=== PATIENT | male | born 1995 ===

== ENCOUNTER 2016-11-22 12:13 | Inpatient (IN) | payer MEDICAID ==
[2016-11-22] MEDS ORDERED: Lidocaine 1% Inj (20ml) IJ ONE (12:46)
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
--- NOTE | 2016-11-22 12:57 | RAD ---
PROCEDURE: Left Hand Radiographs. HISTORY: trauma COMPARISON: None available. FINDINGS: BONES: Acute displaced fracture of the proximal 5th phalanx. JOINTS: No dislocation. SOFT TISSUES: Soft tissue swelling. No evidence of radiopaque foreign body. OTHER FINDINGS: None. IMPRESSION: Soft tissue swelling. Acute displaced fracture of the proximal 5th phalanx.
--- NOTE | 2016-11-22 14:05 | RAD ---
PROCEDURE: Left small finger radiographs. HISTORY: trauma COMPARISON: Left hand radiographs performed 11/22/16 TECHNIQUE: AP radiograph of the left hand, as well as spot oblique and lateral images of left small finger were obtained. FINDINGS: LEFT SMALL FINGER: Images obtained through a splint which obscures osseous detail. Proximal left 5th phalanx fracture deformity appears in improved alignment. Remainder of the left hand (as seen on the AP view) is grossly unremarkable. JOINTS: No dislocation. SOFT TISSUES: Soft tissue swelling. OTHER FINDINGS: None. IMPRESSION: Images obtained through a splint which obscures osseous detail. Proximal left 5th phalanx fracture deformity appears in improved alignment.
[2016-11-22 15:06] LABS: URINE BILIRUBIN NEGATIVE (NEGATIVE); URINE BLOOD SMALL (NEGATIVE); URINE COLOR YELLOW (YELLOW); URINE GLUCOSE (UA) NEGATIVE (Normal); URINE KETONE NEGATIVE (NEGATIVE); URINE PROTEIN NEGATIVE (NEGATIVE)
[2016-11-22 15:07] LABS: RBC URINE 1 /hpf (0-3); URINE LEUKOCYTE ESTERASE NEGATIVE Leu/uL (Negative); URINE UROBILINOGEN 0.2-1.0 mg/dL (0.2-1.0); WBC URINE < 1 /hpf (0-5)
[2016-11-22 15:32] LABS: BASO % 1.3 % (0.0-2.0); EOS # 0.2 K/uL (0.0-0.7); HEMATOCRIT 46.6 % (35.0-51.0); LYMPH # 0.8 K/uL (1.0-4.3); LYMPH % 22.6 % (20.0-40.0); MEAN CELL VOLUME 95.6 fl (80.0-94.0); MEAN CORPUSCULAR HEMOGLOBIN 31.9 pg (27.0-31.0); MEAN CORPUSCULAR HGB CONC 33.4 g/dL (33.0-37.0); MEAN PLATELET VOLUME 8.5 fl (7.2-11.7); MONO # 0.6 K/uL (0.0-0.8); MONO % 16.8 % (0.0-10.0); NEUT # 1.9 K/uL (1.8-7.0); NEUT % 54.3 % (50.0-75.0); NRBC % 0.3 % (0.0-0.0); RED CELL DISTRIBUTION WIDTH 13.2 % (11.5-14.5); WHITE BLOOD COUNT 3.5 K/uL (4.8-10.8)
[2016-11-22 15:42] LABS: ALB/GLOB RATIO 1.8 (1.0-2.1); ALCOHOL SERUM < 10 mg/dl (0-10); ALKALINE PHOSPHATASE 79 U/L (38-126); ALT/SGPT 20 U/L (21-72); AST/SGOT 26 U/L (17-59); BILIRUBIN,TOTAL 0.3 mg/dl (0.2-1.3); BLOOD UREA NITROGEN 11 mg/dl (9-20); CALCIUM 9.8 mg/dL (8.4-10.2); CARBON DIOXIDE 25 mmol/L (22-30); CHLORIDE 102 mmol/L (98-107); GFR AFRICAN-AMERICAN > 60; GLUCOSE,RANDOM 88 mg/dL (75-110); POTASSIUM 3.8 MMOL/L (3.6-5.0); SODIUM 141 mmol/l (132-148); TOTAL PROTEIN 7.8 G/DL (6.3-8.2)
[2016-11-22] MEDS ORDERED: Oxycodone/Acetaminophen 5/325 mg Tab ONE (16:07)
[2016-11-22] MEDS ORDERED: Oxycodone/Acetaminophen 5/325 mg Tab PO STA (16:12)
[2016-11-22 17:12] VITALS: O2SAT 99
[2016-11-22] MEDS ORDERED: Alum-Mag Hydrox-Simethicone Susp (30 mL) PO PRN (17:58)
[2016-11-22] MEDS ORDERED: Magnesium Hydroxide Susp 30 ml UD PO PRN (17:58)
[2016-11-22] MEDS ORDERED: DiphenhydrAMINE 50 mg/ml Inj IM PRN (18:28)
[2016-11-22] MEDS ORDERED: DiphenhydrAMINE 50 mg/ml Inj IM SCH (22:00)
[2016-11-23 07:45] LABS: T4 8.84 ug/dl (5.5-11.0)
[2016-11-23 07:59] LABS: THYROID STIMULATING HORMONE 2.29 mIU/ML (0.46-4.68)
--- NOTE | 2016-11-23 12:45 | PCM.PSYCH ---
Initial Psychiatric Evaluation - Initial Psychiatric Evaluation Type of Admission: Voluntary Legal Status: Capacity Chief Complaint (in patient's own words): they told me i had to come or i might have to go someplace else for mad long, so i came Patient's Reaction to Hospitalization: cooperative/pleasant History of Present Illness and Precipitating Events: pt has no prior psych history. 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 pt states he asked mother about possibly going to a graduate program and states his mother became very upset. states they had a loud, verbal argument. felt she had overreacted and pt made some draumatic gestures- put tie over his door, grabbed a bottle of pills- and then threw the pills down. denies making any attempt or having any desire to harm himself. denies feeling depressed. denies trouble with sleep. denies feeling hopeless or helpless. reports healthy relationship with his girlfriend and doing well at school. he admits to smoking mj with friends to relax. he denies any previous suicide attempts. he reports he would be open to therapy together with his mother. Current Medications: Active Medications Generic Name Dose Route Start Last Admin Trade Name Freq PRN Reason Stop Dose Admin Acetaminophen 650 mg 11/22/16 17:58 Tylenol 325mg Tab PO Q4 PRN Pain, Mild (1-3) Al Hydrox/Mg Hydrox/Simethicone 30 ml 11/22/16 17:58 Maalox Plus 30 Ml PO Q4 PRN Dyspepsia Diphenhydramine HCl 50 mg 11/22/16 17:58 Benadryl PO Q6 PRN Extrapyramidal Symptoms Diphenhydramine HCl 50 mg 11/22/16 18:28 Benadryl IM Q6 PRN EPS/ Dystonic reaction Diphenhydramine HCl 50 mg 11/22/16 18:31 11/23/16 00:15 Benadryl PO 50 mg HS PRN Administration Sleep Haloperidol 5 mg 11/22/16 17:58 Haldol PO Q4 PRN Agitation Haloperidol Lactate 5 mg 11/22/16 18:22 Haldol IM Q6 PRN Agitation Ibuprofen 600 mg 11/22/16 20:45 11/22/16 21:07 Motrin Tab PO 600 mg Q6 PRN Administration Pain, moderate (4-7) Lorazepam 2 mg 11/22/16 17:58 Ativan PO Q4 PRN Anxiety/Agitation Lorazepam 2 mg 11/22/16 21:10 Ativan IM Q4 PRN anxiety/agitation Magnesium Hydroxide 30 ml 11/22/16 17:58 Milk Of Magnesia PO HS PRN Constipation Past Psychiatric History - Past Psychiatric History Previous Treatment History: None History of Abuse: denies History of ETOH/Drug Use: smokes cigarettes when he "feels like it" not daily. smokes mj when with friends. denies use of alcohol. denies other use of illicit substances History of Family Illness: denies any fh of mental illness Pertinent Medical Hx (Current Medical&Sleep Prob, Allergies): Allergies Allergy/AdvReac Type Severity Reaction Status Date / Time No Known Allergies Allergy Verified 11/22/16 12:18 No Known Home Med 11/22/16 pt fracture left hand prior to the admission Review of Systems - Psychiatric Psychiatric: As Per [facility] Mental Status Examination - Personal Presentation Personal Presentation: Looks stated age - Affect Affect: Broad - Motor Activity Motor Activity: Calm - Reliability in Providing Information Reliability in Providing Information: Good - Speech Speech: Organized - Mood Mood: Neutral - Formal Thought Process Formal Thought Process: No Impairment - Obsessions/Compulsions Obsessions: No Compulsions: No - Cognitive Functions Orientation: Person, Place, Situation, Time Sensorium: Alert Attention/Concentration: Attentive Abstract Thinking: [place] Estimate of Intelligence: Average Judgement: Intact, as evidence by: Insight regarding need for hospitalization Memory: Recent intact, as evidence by: Ability to recall events of the day, Remote intact, as evidenced by: Abilit to recall sig. life events - Risk Risk: Suicidal (denies any thoughts/plan or intent to harm self) - Strength & Assets Inventory Strength & Assets Inventory: Intelligence - Limitations Limitations: Other (family conflicts) DSM 5 DX - DSM 5 DSM 5 Diagnosis: adjustment disorder, mixed anxiety depression - Recommended/Plan of Treatment Treatment Recommendations and Plan of Treatment: admit to 3[facility] for safety and observation gather collateral information provide supportive therapy no medications hospitalist consult- t/c ortho consult vs outpt follow up disposition planning- discharge tomorrow after contacting collaterals Projected ELOS: 2 days Prognosis: fair - Smoking Cessation Smoking Cessation Initiated: No Reason for not providing: declines
--- NOTE | 2016-11-23 19:38 | CP.PCM.CON ---
History of Present Illness - History of Present Illness History of Present Illness: 21 yo male admitted to psyche unit because of suicidal ideation. Review of Systems - Review of Systems All systems: reviewed and no additional remarkable complaints except (aside from those mentioned above, 12 point system review were negative by me) Past Patient History - Past Social History Smoking Status: Light Smoker < 10 Cigarettes Daily Chewing Tobacco Use: No Cigar Use: No Alcohol: None Drugs: Cannabis - CARDIAC Hx Cardiac Disorders: No Hx Hypertension: No - PULMONARY Hx Respiratory Disorders: No Hx Tuberculosis: No - NEUROLOGICAL HX Cerebrovascular Accident: No Hx Seizures: No - HEENT Hx HEENT Problems: No - RENAL Hx Chronic Kidney Disease: No Hx Kidney Stones: No - ENDOCRINE/METABOLIC Hx Endocrine Disorders: No - HEMATOLOGICAL/ONCOLOGICAL Hx Blood Disorders: No Hx Cancer: No Hx Human Immunodeficiency Virus (HIV): No - INTEGUMENTARY Hx Dermatological Problems: No - MUSCULOSKELETAL/RHEUMATOLOGICAL Hx Musculoskeletal Disorders: No - GASTROINTESTINAL Hx Gastrointestinal Disorders: No - GENITOURINARY/GYNECOLOGICAL Hx Genitourinary Disorders: No Hx Sexually Transmitted Disorders: No - PSYCHIATRIC Hx Substance Use: Yes (smokes THC on W/E) - SURGICAL HISTORY Hx Arteriovenous Shunt: No - ANESTHESIA Hx Anesthesia: No Meds Allergies/Adverse Reactions: Allergies Allergy/AdvReac Type Severity Reaction Status Date / Time No Known Allergies Allergy Verified 11/22/16 12:18 - Medications Medications: Current Medications Acetaminophen (Tylenol 325mg Tab) 650 mg PO Q4 PRN PRN Reason: Pain, Mild (1-3) Al Hydrox/Mg Hydrox/Simethicone (Maalox Plus 30 Ml) 30 ml PO Q4 PRN PRN Reason: Dyspepsia Diphenhydramine HCl (Benadryl) 50 mg PO Q6 PRN PRN Reason: Extrapyramidal Symptoms Diphenhydramine HCl (Benadryl) 50 mg IM Q6 PRN PRN Reason: EPS/ Dystonic reaction Diphenhydramine HCl (Benadryl) 50 mg PO HS PRN PRN Reason: Sleep Last Admin: 11/23/16 00:15 Dose: 50 mg Haloperidol (Haldol) 5 mg PO Q4 PRN PRN Reason: Agitation Haloperidol Lactate (Haldol) 5 mg IM Q6 PRN PRN Reason: Agitation Ibuprofen (Motrin Tab) 600 mg PO Q6 PRN PRN Reason: Pain, moderate (4-7) Last Admin: 11/22/16 21:07 Dose: 600 mg Lorazepam (Ativan) 2 mg PO Q4 PRN PRN Reason: Anxiety/Agitation Lorazepam (Ativan) 2 mg IM Q4 PRN PRN Reason: anxiety/agitation Magnesium Hydroxide (Milk Of Magnesia) 30 ml PO HS PRN PRN Reason: Constipation Physical Exam - Constitutional Appears: No Acute Distress - Head Exam Head Exam: ATRAUMATIC - Eye Exam Eye Exam: absent: Scleral icterus - ENT Exam ENT Exam: Mucous Membranes Moist - Neck Exam Neck exam: Negative for: Meningismus - Respiratory Exam Respiratory Exam: absent: Rhonchi, Wheezes, Respiratory Distress - Cardiovascular Exam Cardiovascular Exam: REGULAR RHYTHM, +S1, +S2 - GI/Abdominal Exam GI & Abdominal Exam: Soft. absent: Tenderness - Rectal Exam Rectal Exam: Deferred - Extremities Exam Extremities exam: Negative for: pedal edema - Back Exam Back exam: NORMAL INSPECTION - Neurological Exam Neurological exam: Alert, Oriented x3 - Psychiatric Exam Psychiatric exam: Normal Affect - Skin Skin Exam: Dry, Intact Results - Vital Signs Recent Vital Signs: Last Vital Signs Temp 97.9 F 11/23/16 10:00 Pulse 100 H 11/23/16 10:00 Resp 20 11/23/16 10:00 BP 119/75 11/23/16 10:00 Pulse Ox 99 11/22/16 17:10 - Labs Result Diagrams: 11/22/16 12:55 11/22/16 12:55 Labs: Laboratory Results - last 24 hr 11/23/16 11/23/16 11/23/16 06:00 06:00 06:00 Hemoglobin A1c 5.3 Triglycerides 57 Cholesterol 151 LDL Cholesterol Direct 77 HDL Cholesterol 51 Thyroxine (T4) 8.84 TSH 3rd Generation 2.29 RPR Nonreactive Assessment & Plan (1) Depression Status: Acute Comment: psyche is managing (2) Finger fracture Status: Acute Comment: displaced fracture of the proximal phalanx of the left 5th finger. maintain immobilization. follow up with ortho
--- NOTE | 2016-11-24 08:31 | PCM.PYCHDC ---
Mental Status Examination - Mental Status Examination Orientation: Person, Place, Situation, Time Memory: Intact Mood: Neutral Affect: Broad Speech: Appropriate Attention: WNL Concentration: WNL Association: WNL Fund of Knowledge: WNL Formal Thought Process: No Impairment Description of patient's judgement and insight: fair Psychotic Thoughts and Behaviors: denies a/v hallucinations Suicidal Ideation: No Current Homicidal Ideation?: No Plan: denies suicidal or homicidal thoughts Discharge Summary - Discharge Note Reason for Hospitalization: pt made suicidal gestures in context of argument with mother Psychiatric History (includes Medical, Family, Personal Hx): no previous history of psychiatric illness Laboratory Data: Abnormal Lab Results 11/23/16 11/23/16 11/23/16 06:00 06:00 06:00 Hemoglobin A1c 5.3 TSH 3rd Generation 2.29 RPR Nonreactive Consultations:: List each consultation separately and include: 1. Reason for request. 2. Findings. 3. Follow-up Consultations: seen by the hospitalist Summary of Hospital Course include:: 1. Description of specific treatment plan utilized for patients during their course of treatmen. 2. Summarize the time- course for resolution of acute symptoms and/or regressed behaviors. 3. Describe issues identified and worked on during hospitalization. 4. Describe medication utilized. 5. Describe medical problems identified and treated. 6. Reassessment of suicide risk Summary of Hospital Course: pt has no prior psych history. 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 pt states he asked mother about possibly going to a graduate program and states his mother became very upset. states they had a loud, verbal argument. felt she had overreacted and pt made some draumatic gestures- put tie over his door, grabbed a bottle of pills- and then threw the pills down. denies making any attempt or having any desire to harm himself. denies feeling depressed. denies trouble with sleep. denies feeling hopeless or helpless. reports healthy relationship with his girlfriend and doing well at school. he admits to smoking mj with friends to relax. he denies any previous suicide attempts. he reports he would be open to therapy together with his mother. hospital course pt was admitted to [facility] and oriented to the unit. pt placed on routine safety protocols. pt was seen by the hospitalist regarding his hand injury. he stated he will follow up with his mother's orthopedic doctor. he was seen by the treatment team. he was denying any suicidal thoughts and was insistent that the pt was misunderstood and that he was having an emotional argument with his mother. he was agreeable to referral to outpatient therapy. he was attending groups and was socializing with peers. pt was denying suicidal or homicidal thoughts. - Final Diagnosis (DSM 5) Condition upon Discharge: STABLE DSM 5: adjustment disorder, unspecified Disposition: HOME/ ROUTINE Follow-up Treatment Plan: follow up with outpatient treatment as prescribed do not use alcohol, tobacco or other illicit substances call 911 if any suicidal or homicidal thoughts - Smoking Cessation Smoking Cessation Medication prescribed: No Reason for not providing: declines - Antipsychotic Medications Pt discharged on 2 or more routine antipsychotic medications: No
[2016-11-24 10:43] VITALS: BP 131/75; PULSE 80; RESP 18; TEMP 97.3
== END 2016-11-24 13:26 | disposition home or self-care (01) | DRG 427 ==
LOC: H.ER 12:13 → H.ERHOLD 15:48 → H.PSYCH 17:31
PROVIDERS: ADMIT Psychiatry & Neurology Psychiatry; ATTEND Psychiatry & Neurology Psychiatry
PROC: GZHZZZZ Group Psychotherapy (ICD-10-PCS; principal; 2016-11-22)
PROC: GZ58ZZZ Individual Psychotherapy, Cognitive-Behavioral (ICD-10-PCS; 2016-11-22)
DX: F43.23 Adjustment disorder with mixed anxiety and depressed mood (principal); F12.10 Cannabis abuse, uncomplicated; S62.618A Displaced fracture of proximal phalanx of other finger, initial encounter for closed fracture; F17.210 Nicotine dependence, cigarettes, uncomplicated; W03.XXXA Other fall on same level due to collision with another person, initial encounter; Y92.009 Unspecified place in unspecified non-institutional (private) residence as the place of occurrence of the external cause

== ENCOUNTER 2016-11-30 20:49 | Emergency (ER) | payer MEDICAID ==
[2016-11-30 21:55] VITALS: BP 134/88; PULSE 88; RESP 16; TEMP 98; O2SAT 100
--- NOTE | 2016-11-30 23:09 | ED PDOC ---
Upper Extremity Pain/Injury Time Seen by Provider: 11/30/16 22:45 Chief Complaint (Nursing): Upper Extremity Problem/Injury Chief Complaint (Provider): Hand Pain History Per: Patient Additional History Per: Patient Additional Complaint(s): Patient diagnosed with broken left 5th digit last week and states he is unable to follow up with ortho or hand specialist. Past Medical History Reviewed: Nursing Documentation, Vital Signs Vital Signs: Last Vital Signs Temp 98.0 F 11/30/16 21:53 Pulse 88 11/30/16 21:53 Resp 16 11/30/16 21:53 BP 134/88 11/30/16 21:53 Pulse Ox 100 11/30/16 21:53 - Medical History PMH: Depression Denies: Diabetes, Hepatitis, HIV, HTN, Kidney Stones, Chronic Kidney Disease , Seizures, Sexually Transmitted Disease - Surgical History Surgical History: No Surg Hx - Family History Family History: States: Unknown Family Hx - Living Arrangements Living Arrangements: With Family - Social History Current smoker - smoking cessation education provided: No Alcohol: Social Drugs: Cannabis - Home Medications Home Medications: Ambulatory Orders Medication Instructions Recorded No Known Home Med 11/22/16 - Allergies Allergies/Adverse Reactions: Allergies Allergy/AdvReac Type Severity Reaction Status Date / Time No Known Allergies Allergy Verified 11/30/16 21:53 Review of Systems ROS Statement: Except As Marked, All Systems Reviewed And Found Negative Musculoskeletal: Positive for: Other (hand pain) - ECG O2 Sat by Pulse Oximetry: 100
--- NOTE | 2016-12-01 11:05 | RAD ---
PROCEDURE: Left small finger radiographs. HISTORY: Re-evaluate great. COMPARISON: Made with two prior studies dated 11/22/2016 at 12:35 p.m. and 13:11 p.m. TECHNIQUE: AP radiograph of the left hand, as well as spot oblique and lateral images of left small finger were obtained through a fiberglass joseph splint which obscures fine soft tissue and bone detail of the digit as well as the ulnar aspect of the carpus and ulna. FINDINGS: LEFT SMALL FINGER: Previously noted displaced fracture proximal phalanx 5th digit. . Anatomic alignment unchanged from prior study 11/22/2016 p.m. (closed reduction films) there appears to be mild soft tissue swelling left 5th finger. JOINTS: No dislocation SOFT TISSUES: Normal. OTHER FINDINGS: None. IMPRESSION: Fracture proximal phalanx 5th finger. Anatomic alignment unchanged from prior study as detailed above
== END 2016-11-30 23:36 | disposition home or self-care (01) ==
LOC: H.ER 20:49
DX: Z47.89 Encounter for other orthopedic aftercare (principal)